=== PATIENT | male | born 1960 | race African-American/Black ===

== ENCOUNTER → 2020-10-01 | Emergency (ER) | payer SELFPAY ==
[~2020-10-01] VITALS: Ht 188 cm; Wt 70.5 kg
[~2020-10-01] MED LIST: AMOXICILLIN500 M1 PO; MEDROL DOSE PACK4 MG PO
[2020-10-01 09:28] VITALS: BP 131/80; Ht 188 cm; Wt 70.5 kg
== END | disposition home or self-care (01) ==
LOC: D.ER 09:15
DX: J30.9 Allergic rhinitis, unspecified (principal); J32.9 Chronic sinusitis, unspecified